=== PATIENT | male | born 1990 ===

== ENCOUNTER 2024-10-03 06:15 | Day surgery (SDC) | payer OTHER ==
[2024-09-25 11:07] LABS: PH,URINE 5.5 (5.0-8.0); URINE APPEARANCE Clear; URINE BILIRRUBIN Negative (NEGATIVE); URINE BLOOD Negative; URINE COLOR Yellow; URINE GLUCOSE Negative (NEGATIVE); URINE KETONE Negative (NEGATIVE); URINE LEUKOCYTE Negative; URINE NITRATE Negative; URINE PROTEIN Negative (NEGATIVE); URINE UROBILINOGEN 0.2 E.U./dl
[2024-09-25 11:10] LABS: HEMATOCRIT 42.2 % (39.0-48.0); HEMOGLOBIN 14.6 g/dL (13-16.00); MEAN CELL VOLUME 88.1 fL (80.0-100.00); MEAN CORPUSCULAR HEMOGLOBIN 30.4 pg (27.00-32.0); MEAN CORPUSCULAR HGB CONC 34.5 g/dl (32.0-36.0); PLATELET COUNT 249 K/uL (150-450); RED CELL DISTRIBUTION WIDTH 13.2 % (11.5-14.5)
[2024-09-25 11:13] LABS: URINE BACTERIA 17.1 uL (0.0-1933)
[2024-09-25 11:20] LABS: URINE CAST 0.29 uL (0.0-1.40); URINE EPITHELIAL CELLS 1.2 uL (0.0-38.8); URINE RBC 1.1 uL (0.0-20.8)
[2024-09-25 11:31] LABS: INR 0.94; PROTHROMBIN TIME 10.3 SECONDS (9.0-11.5)
[2024-09-25 12:13] LABS: BILIRUBIN TOTAL 1.1 mg/dL (0.3-1.2); CALCIUM 9.2 mg/dL (8.5-10.1); CREATININE SERUM 0.82 mg/dL (0.70-1.30); GFR 106.31; GLOBULINA 3.7 G/DL (2.4-3.5); POTASSIUM 4.15 mEq/L (3.5-5.1); TOTAL PROTEIN 7.7 gm/dL (6.4-8.2)
[~2024-10-03 06:15] MED LIST: EMGALITY P120 MG/1 M; FAMOTIDINE20 MG; NURTEC ODT75 MG PO; PRILOSEC OTC20 MG
[2024-10-03] MEDS ORDERED: BUPIVACAINE HCL/MPF 0.5% 30ML VIAL ONE (11:45)
[2024-10-03] MEDS ORDERED: METHYLPREDNISOLONE ACETATE 80 MG/ML VIAL ONE (11:45)
[2024-10-03] MEDS ORDERED: EPINEPHRINE HCL/PF 1 MG/ML AMPUL ONE (11:45)
[2024-10-03] MEDS ORDERED: CEFAZOLIN SODIUM 1,000 MG VIAL ONE (11:51)
[2024-10-03] MEDS ORDERED: ACETAMINOPHEN 500 MG TABLET PO ONE (13:55)
[2024-10-03] MEDS ORDERED: ACETAMINOPHEN 500 MG GEL..CAP PO ONE (13:58)
== END 2024-10-03 14:50 | disposition home or self-care (01) ==
LOC: CIR.AMB 06:15
PROVIDERS: ATTEND Orthopaedic Surgery Hand Surgery
DX: S63.592A Other specified sprain of left wrist, initial encounter (principal); S63.302A Traumatic rupture of unspecified ligament of left wrist, initial encounter; Z88.6 Allergy status to analgesic agent